=== PATIENT | female | born 1950 | race Caucasian/White ===

== ENCOUNTER 2018-08-11 15:19 | Outpatient (REF) | payer MEDICARE, BC, SELFPAY ==
[2018-08-11 22:17] LABS: Abs Immature Grans 0.02 k/cumm (0.0-0.09); Absolute Basophil Count 0.01 k/cumm (0.0-0.2); Absolute Eosinophil Count 0.01 k/cumm (0.0-0.7); Absolute Lymphocyte Count 1.58 k/cumm (1.2-3.4); Absolute Monocyte Count 0.47 k/cumm (0.11-0.7); Basophils % 0.2; Eosinophils % 0.2; HCT 43.7 % (36.0-46.0); Immature Grans % 0.3; Lymphocytes % 24.3; Mean Corp. HGB Concentration 34.3 g/dL (32.0-36.0); Mean Corpuscular Hemoglobin 29.4 pg (27.0-33.0); Mean Corpuscular Volume 85.5 fL (80-95); Mean Platelet Volume 11.2 fL (8.0-11.0); Monocytes % 7.2; Neutrophils % 67.8; Platelet Count 234 x1000/uL (130-400); RBC 5.11 m/cumm (4.00-5.20); RBC Distribution Width 13.5 % (11.7-14.6); White Blood Cell Count 6.49 k/cumm (4.4-10.8)
[2018-08-11 22:35] LABS: TSH 0.57 uIU/mL (0.358-3.74)
== END 2018-08-11 15:39 ==
LOC: NCHCN 15:19
PROVIDERS: PCP Internal Medicine; Visit Provider Internal Medicine
DX: E11.9 Type 2 diabetes mellitus without complications (principal); E03.9 Hypothyroidism, unspecified
CPT/HCPCS: 84443; 85025

== ENCOUNTER 2019-04-04 22:13 | Outpatient (REF) | payer MEDICARE, BC, SELFPAY ==
[2019-04-04 22:40] LABS: Anion Gap 9.3 mmol/L (3-11); BUN 18 mg/dL (7-18); CO2 25.7 mmol/L (21.0-32.0); CREATININE 0.75 mg/dL (0.55-1.02); Calcium 9.1 mg/dL (8.5-10.1); Chloride 106 mmol/L (98-107); Glucose 156 mg/dL (70-100); Potassium 4.4 mmol/L (3.5-5.1); Sodium 141 mmol/L (136-145)
[2019-04-04 22:45] LABS: Hemoglobin A1C 6.7 % (4.5-6.2)
[2019-04-04 23:33] LABS: COMMENT (LAB VIEW ONLY) 60.87 mg/dL; Microalb ug/mg Crea 7.4 ug/mg Cr
== END 2019-04-04 22:33 ==
LOC: NCHCN 22:13
PROVIDERS: PCP Internal Medicine; Visit Provider Internal Medicine
DX: I10 Essential (primary) hypertension (principal); E11.9 Type 2 diabetes mellitus without complications
CPT/HCPCS: 80048; 82043; 82570; 83036

== ENCOUNTER 2020-04-24 14:37 | Outpatient (REF) | payer MEDICARE, BC, SELFPAY ==
[2020-04-24 22:15] LABS: ALT 31 U/L (14-59); AST 21 U/L (15-37); Albumin 4.2 g/dL (3.4-5.0); Alkaline Phosphatase 57 U/L (46-116); Anion Gap 10.7 mmol/L (3-11); BUN 21 mg/dL (7-18); Bilirubin, Total 0.6 mg/dL (0.2-1.0); CO2 25.3 mmol/L (21.0-32.0); CREATININE 0.94 mg/dL (0.55-1.02); Calcium 9.2 mg/dL (8.5-10.1); Chloride 105 mmol/L (98-107); Glucose 125 mg/dL (74-106); Potassium 4.4 mmol/L (3.5-5.1); Sodium 141 mmol/L (136-145); TSH 0.48 uIU/mL (0.36-3.74); Total Protein 7.4 g/dL (6.4-8.2)
== END 2020-04-24 14:57 ==
LOC: NCHCN 14:37
PROVIDERS: PCP Internal Medicine; Visit Provider Internal Medicine
DX: E03.9 Hypothyroidism, unspecified (principal); I10 Essential (primary) hypertension; H91.93 Unspecified hearing loss, bilateral
CPT/HCPCS: 80053; 84443

== ENCOUNTER 2020-10-13 18:26 | Outpatient (REF) | payer MEDICARE, BC, SELFPAY ==
[2020-10-15 16:33] LABS: COVID-19 RT-PCR UVMMC Result Negative (Negative)
== END 2020-10-13 18:46 ==
LOC: NCHCN 18:26
PROVIDERS: PCP Internal Medicine; Visit Provider Nurse Practitioner Family
DX: R51.9 Headache, unspecified (principal)
CPT/HCPCS: U0003

== ENCOUNTER 2021-01-21 16:22 | Outpatient (REF) | payer MEDICARE, BC, SELFPAY ==
[2021-01-21 22:10] LABS: COMMENT (LAB VIEW ONLY) 38.47 mg/dL
== END 2021-01-21 16:23 | disposition home or self-care (01) ==
LOC: NCHCN 16:22
PROVIDERS: PCP Internal Medicine; Visit Provider Internal Medicine
DX: E11.9 Type 2 diabetes mellitus without complications (principal)
CPT/HCPCS: 82043; 82570

== ENCOUNTER 2021-07-23 11:45 | Outpatient (REF) | payer MEDICARE, BC, SELFPAY ==
[2021-07-23 15:17] LABS: Anion Gap 11.6 mmol/L (3-11); BUN 18 mg/dL (7-18); CO2 25.4 mmol/L (21.0-32.0); CREATININE 0.8 mg/dL (0.55-1.02); Calcium 9.2 mg/dL (8.5-10.1); Calculated LDL 61 mg/dL (<100); Chloride 107 mmol/L (98-107); Cholesterol 133 mg/dL (<200); Glucose 117 mg/dL (74-106); HDL Cholesterol 55 mg/dL (40-60); Potassium 4.2 mmol/L (3.5-5.1); Sodium 144 mmol/L (136-145); Triglyceride 88 mg/dL (<150)
[2021-07-23 15:36] LABS: Hemoglobin A1C 6.3 % (<5.7)
== END 2021-07-23 11:46 | disposition home or self-care (01) ==
LOC: NCHCN 11:45
PROVIDERS: PCP Internal Medicine; Visit Provider Internal Medicine
DX: E11.9 Type 2 diabetes mellitus without complications (principal); E78.5 Hyperlipidemia, unspecified
CPT/HCPCS: 80048; 80061; 83036

== ENCOUNTER 2021-11-30 21:38 | Outpatient (REF) | payer MEDICARE, BC, SELFPAY ==
[2021-11-30 21:39] LABS: TSH 0.06 uIU/mL (0.36-3.74)
== END 2021-11-30 21:39 | disposition home or self-care (01) ==
LOC: NCHCN 21:38
PROVIDERS: PCP Internal Medicine; Visit Provider Internal Medicine
DX: E03.9 Hypothyroidism, unspecified (principal)
CPT/HCPCS: 84443

== ENCOUNTER 2022-03-31 14:43 | Outpatient (REF) | payer MEDICARE, BC, SELFPAY ==
[2022-03-31 22:14] LABS: Hemoglobin A1C 6.2 % (<5.7)
[2022-03-31 22:25] LABS: TSH (W/Ref FT4) 0.22 uIU/mL (0.36-3.74)
[2022-03-31 22:49] LABS: FREE T4 1.33 ng/dL (0.76-1.46)
[2022-03-31 22:53] LABS: COMMENT (LAB VIEW ONLY) 60.67 mg/dL; Microalb ug/mg Crea 16.5 ug/mg Cr
== END 2022-03-31 14:44 | disposition home or self-care (01) ==
LOC: NCHCN 14:43
PROVIDERS: PCP Internal Medicine; Visit Provider Registered Nurse
DX: E11.9 Type 2 diabetes mellitus without complications (principal); E03.9 Hypothyroidism, unspecified
CPT/HCPCS: 82043; 82570; 83036; 84439; 84443

== ENCOUNTER 2022-07-01 13:46 | Outpatient (REF) | payer MEDICARE, BC, SELFPAY ==
[2022-07-01 21:00] LABS: Anion Gap 11.3 mmol/L (3-11); BUN 22 mg/dL (7-18); CO2 25.7 mmol/L (21.0-32.0); Calcium 9.9 mg/dL (8.5-10.1); Chloride 104 mmol/L (98-107); Estimated GFR 59.49 (mL/min/1.73m2); Glucose 118 mg/dL (74-106); Potassium 4.1 mmol/L (3.5-5.1); Sodium 141 mmol/L (136-145)
== END 2022-07-01 13:47 | disposition home or self-care (01) ==
LOC: NCHCN 13:46
PROVIDERS: PCP Internal Medicine; Visit Provider Registered Nurse
DX: U07.1 COVID-19 (principal)
CPT/HCPCS: 80048

== ENCOUNTER 2022-08-10 14:49 | Outpatient (REF) | payer MEDICARE, BC, SELFPAY ==
[2022-08-10 15:13] LABS: Hemoglobin A1C 6.4 % (<5.7)
[2022-08-10 15:27] LABS: TSH 0.75 uIU/mL (0.36-3.74)
== END 2022-08-10 14:50 | disposition home or self-care (01) ==
LOC: NCHCN 14:49
PROVIDERS: PCP Internal Medicine; Visit Provider Internal Medicine
DX: E11.9 Type 2 diabetes mellitus without complications (principal); E03.9 Hypothyroidism, unspecified
CPT/HCPCS: 83036; 84443

== ENCOUNTER 2023-02-14 16:27 | Outpatient (REF) | payer MEDICARE, BC, SELFPAY ==
[2023-02-14 21:43] LABS: COMMENT (LAB VIEW ONLY) 98.12 mg/dL; Microalb ug/mg Crea 27.3 ug/mg Cr
== END 2023-02-14 16:28 | disposition home or self-care (01) ==
LOC: NCHCN 16:27
PROVIDERS: PCP Internal Medicine; Visit Provider Internal Medicine
DX: E11.9 Type 2 diabetes mellitus without complications (principal)
CPT/HCPCS: 82043; 82570

== ENCOUNTER 2023-08-08 14:48 | Outpatient (REF) | payer MEDICARE, BC, SELFPAY ==
[2023-08-08 22:08] LABS: HCT 43.8 % (36.0-46.0); HGB 14.9 g/dL (11.2-15.7); MCH 29.7 pg (27.0-33.0); MCV 87 fL (80-95); MPV 10.5 fL (8.0-11.0); Platelet Count 191 10^3/uL (130-400); RBC 5.02 10^6/uL (3.93-5.22); RDW 13.6 % (11.7-14.6); RDW-SD 43.5 fL; WBC 4.48 10^3/uL (4.4-10.8)
[2023-08-08 22:09] LABS: Anion Gap 7.7 mmol/L (3-11); BUN 27 mg/dL (7-18); CO2 29.3 mmol/L (21.0-32.0); Calcium 9.9 mg/dL (8.5-10.1); Chloride 102 mmol/L (98-107); Estimated GFR 58.75 (mL/min/1.73m2); Glucose 152 mg/dL (74-106); Potassium 3.8 mmol/L (3.5-5.1); Sodium 139 mmol/L (136-145); TSH 0.82 uIU/mL (0.36-3.74)
[2023-08-08 22:27] LABS: Hemoglobin A1C 6.2 % (<5.7)
== END 2023-08-08 14:49 | disposition home or self-care (01) ==
LOC: NCHCN 14:48
PROVIDERS: PCP Internal Medicine; Visit Provider Internal Medicine
DX: M81.0 Age-related osteoporosis without current pathological fracture (principal); I10 Essential (primary) hypertension; E11.9 Type 2 diabetes mellitus without complications; E03.9 Hypothyroidism, unspecified
CPT/HCPCS: 80048; 82306; 85027; 83036; 84443

== ENCOUNTER 2024-02-13 18:04 | Outpatient (REF) | payer MEDICARE, BC, SELFPAY ==
[2024-02-13 22:18] LABS: Microalb ug/mg Crea 9.6 ug/mg Cr
== END 2024-02-13 18:05 | disposition home or self-care (01) ==
LOC: NCHCN 18:04
PROVIDERS: PCP Internal Medicine; Visit Provider Internal Medicine
DX: E11.9 Type 2 diabetes mellitus without complications (principal)
CPT/HCPCS: 82043; 82570

== ENCOUNTER 2024-03-23 15:28 | Outpatient (REF) | payer MEDICARE, BC, SELFPAY ==
[2024-03-23 15:12] LABS: Bilirubin Negative (Negative); Blood Negative (Negative); Clarity Clear (Clear); Glucose 500 mg/dL (Negative); Ketones Negative (Negative); Leukocyte Esterase Negative (Negative); Nitrite Negative (Negative); Urobilinogen 0.2 mg/dL (Up to 0.2)
--- OUTSIDE RECORDS SUMMARY | 2024-03-23 15:31 | XMS_ITS ---
Author Name Unknown Address [address] [place] [address] [phone] Phone Organization Unknown Address [address] [place] [address] [phone] Phone Care Team Providers Care American Indian Studies Professor Name Role Phone GARY DUMONT Registered Nurse Unavailable STEFANIA Rodrigues Attending Unavailable JAMES Mix Primary Unavailable UNLISTED PROVIDER - REQUESTED Xhandoff Un available Immunization Immunization Date Status Additional Notes Code Code System Td (adult), 5 Lf tetanus toxoid, preservative free, adsorbed 04/09/2023 Completed [address] HEAD WO CONTRAST - Comple evelia: 04/10/2023 01:53 LOINC: [facility] [place], [place] [address] PACS ANIMAL SKINNER REPORT Patient Name: PAYAL ARNETT MRN: Sex: : Age: [id number] F 1950 72 Account: Accession: Admit: StayType: [id number] 04/09/2023 E/R Ordered: Order ID: Submitted: Ordering Provider: 04/09/2023 22:07 [id number] JEFFY ROA Completed: Technologist: Resulted: 04/10/2023 01:53 MXM 04/10/2023 13:42 Study Description: CT HEAD WO CONTRAST Study Reason: External Injury/Trauma COMPARISON: None FINDINGS: Ventricles and Extra axial spaces: Normal in size and morphology for the patient's age. Hemorrhage: None. Cerebral parenchyma: No mass or infarct. Minimal atrophy. No significant white matter changes. Midline shift: None. Brainstem/Cerebellum: Normal. Calvarium: Hyperostosis frontalis interna. Visualized Paranasal sinuses/Mastoids: Clear. Soft Tissues: Unremarkable. IMPRESSION: No acute intracranial process. Report Digitally Signed by Radhika Allen on 04/10/2023 01:42 PM EDT XR WRIST 3V W NAVICULAR RT* - Completed: 04/10/2023 01:53 LOINC: [facility] [place], [place] [address] PACS ANIMAL SKINNER REPORT Patient Name: PAYAL ARNETT MRN: Sex: : Age: [id number] F 1950 72 Account: Accession: Admit: StayType: [id number] 04/09/2023 E/R Ordered: Order ID: Submitted: Ordering Provider: 04/09/2023 21:37 [id number] JEFFY ROBERTO Completed: Technologist: Resulted: 04/10/2023 01:53 MXM 04/10/2023 13:43 Study Description: XR WRIST 3V W NAVICULAR RT Study Reason: Pain 4 Images were obtained. COMPARISON: None FINDINGS: Bones: Nondisplaced fracture the base of the fifth metacarpal. No additional fractures. No destructive bony lesion. Joints:No subluxation or dislocation. degenerative changes. Soft tissues: Unremarkable. No foreign body. IMPRESSION: Nondisplaced fracture at the base of the fifth metacarpal.. Report Digitally Signed by Radhika Allen on 04/10/2023 01:43 PM EDT Social History Type Status Start Date End Date Code Code Syst em Smoking History Never smoker (Never Smoked) 058765165 SNOMED CT Sex Female Vital Signs Vital Sign Value Unit [place] Date/Time Recent/Initial? Code Code System Body Mass Index 33.73 kg/m2 04/09/2023 21:37 Initial 36184 -5 LOINC Systolic Blood Pressure 139 mm[Hg] 04/10/2023 01:22 Most Recent 8480- 6 LOINC Diastolic Blood Pressure 71 mm[Hg] 04/10/2023 01:22 Most Recent 8462- 4 LOINC Systolic Blood Pressure 144 mm[Hg] 04/09/2023 21:37 Initial 8480- 6 LOINC Diastolic Blood Pressure 68 mm[Hg] 04/09/2023 21:37 Initial 8462- 4 LOINC Body Surface Area 1.78 m2 04/09/2023 21:37 Initial 3140- 1 LOINC Height 149.860 0 cm 59.00 in 04/09/2023 21:37 Initial 8302- 2 LOINC O2 Saturation 92 % 2022 01:22 Most Recent 60601 -5 LOINC O2 Saturation 99 % 2022 21:37 Initial 05522 -5 LOINC Pulse 83.0 /min 04/10/2023 01:22 Most Recent 8867- 4 LOINC Pulse 82.0 /min 04/09/2023 21:37 Initial 8867- 4 LOINC Respiration 18 /min 04/10/20 01:22 Most Recent 9279- 1 LOINC Respiration 20 /min 04/09/20 21:37 Initial 9279- 1 LOINC Temperature 36.5 Adrienne 97.7 F 04/09/20 21:37 Initial 8310- 5 LOINC Weight 75.75 kg 167.00 lbs 04/09/2023 21:37 Initial 61345 -7 LOINC Medications Medication Start Date End Date Route Frequency Dose Code Code System Medication Instructions Home Meds Keflex 500MG Oral Capsule 04/10/2023 07/03/2023 ORAL THREE TIMES A DAY 1 CAPSULE 633854 RxNorm TAKE 1 CAPSULE ORAL THREE TIMES A DAY oxyCODONE HCl 5MG Oral Capsule 07/03/2023 Unknown ORAL NEEDED FOUR TIMES A DAY 1 CAPSULE 9967310 RxNorm TAKE 1 CAPSULE ORAL NEEDED FOUR TIMES A DAY Assessment You had the following problems:FALLLACERATION OF LIPCLOSED FRACTURE OF FIFTH METACARPAL BONE OF RIGHT HAND Hospital Discharge Instructions Should you have any questions prior to discharge, please contact a member of your healthcare team. If you have left the hospital and have any questions, please contact your primary care physician. Reason For Referral No Data Found Problems Problem Start Date Resolved Date Status Code Code System FALL active 9210139 SNOMED-CT LACERATION OF LIP active 405162247 SN OMED-CT CLOSED FRACTURE OF FIFTH METACARPAL BONE OF RIGHT HAND active 72158822577314132 SNOMED-CT BREAST CANCER 07/03/2023 resolved 329709738 SNOME D-CT DIABETES 2 07/03/2023 resolved 98486756 SNOMED-C T HYPERTENSION 07/03/2023 resolved 52380515 SNOMED -CT Allergies and Adverse Reactions Allergy Substance Reaction Severity Start Date Concern Status Co de Code System No Known Allergies Moderate Active Plan of Treatment Pre-Op Covid-19 Testing 02/03/2021 X-RAY 12/16/2022 BONE DENSITY DEXA SPINE & HIP OUTPATIENT PLAN: Additional Physician Instructions: Clear liquids for 1-2 days. Swish and spit with water after eating/drinking. Keep splint clean and dry. Keep arm elevated above heart as much as possible. Your prescription was electronically sent to [facility] in [place]. Discharge Medications Medication Dosage Route Frequency Prescribing MD Special Instructions Keflex 500MG Oral Capsule 1 CAPSULE ORAL THREE TIMES A DAY STEFANIA JEFFY Lilia TAKE 1 CAPSULE ORAL THREE TIMES A DAY HOSPITAL COURSE AND TESTING: Medications given this visit: Ordered & Completed Meds Table Ordered Medication Start Date/Time Dosage Route Frequency Status TETANUS/DIPTHERIA TOX SDV ADULT 0.5ML 04/09/2023 22:06 0.5 ML IM OPTIONS X1 completed LIDOCAINE/EPI MPF INJ SDV 2% 20ML 04/09/2023 22:06 1 ML SUBCUTANEOUS OPTIONS X1 completed ER- CEPHALEXIN 4 PACK: 500MG 04/10/2023 00:59 500 MG ORAL Q8H active RADIOLOGY RESULTS: CT HEAD, W/O CONTRAST - interpreted by [facility]. Impression: no acute intracranial abnormality XRAY RIGHT WRIST AND HAND - Reveals ACUTE FRACTURE OF PROXIMAL 5th METACARPAL. NO soft tissue abnormalities. NO foreign body visualized. This is an abnormal Xray interpreted by ER MD. PROCEDURES: Suture repair Encounters Encounter Diagnosis Start Date Code Code Sys tem Laceration without foreign body of lip, initial encoun ter 04/09/2023 SNOMED-CT Personal Care Team Section Performer Name Performer Role Active Date Inactive Da te
--- OUTSIDE RECORDS SUMMARY | 2024-03-23 15:31 | XMS_ITS ---
Author Name Unknown Address [address] [place] [address] [phone] Phone Organization Unknown Address [address] [place] [address] [phone] Phone Care Team Providers Care Director Post Name Role Phone JAMES Mix Attending Unavailable Immunization Immunization Date Status Additional Notes Code Code System Td (adult), 5 Lf tetanus toxoid, preservative free, adsorbed 04/09/2023 Completed 113 CVX Results XR KNEE 3V RT* - Completed: 12/16/2022 13:42 [facility] [place], [place] [address] PACS CSM CONSULTANT REPORT Patient Name: PAYAL ARNETT MRN: Sex: : Age: [id number] F 1950 72 Account: Accession: Admit: StayType: [id number] 12/16/2022 O/P Ordered: Order ID: Submitted: Ordering Provider: 12/16/2022 13:14 [id number] KT VIJAY RAMIREZ Completed: Technologist: Resulted: 12/16/2022 13:42 SLG 12/16/2022 13:47 Study Description: XR KNEE 3V RT Study Reason: RT KNEE PAIN Technique: 2D digital imaging was performed. 3 images were obtained. COMPARISON: None. FINDINGS: Bones: No acute fractures present. No bony destructive lesion is seen. Joints: No dislocation is present. There are postsurgical changes of a right total knee replacement. The orthopedic hardware appears in good position. No lucencies are seen in or about the orthopedic hardware. Soft tissues: Unremarkable. IMPRESSION: Right total knee arthroplasty. Report Digitally Signed by Avtar Dias on 12/16/2022 01:47 PM EDT Social History Type Status Start Date End Date Code Code Syst em Smoking History Never smoker (Never Smoked) 819761455 SNOMED CT Sex Female Medications Medication Start Date End Date Route Frequency Dose Code Code System Medication Instructions Home Meds Keflex 500MG Oral Capsule 04/10/2023 07/03/2023 ORAL THREE TIMES A DAY 1 CAPSULE 528785 RxNorm TAKE 1 CAPSULE ORAL THREE TIMES A DAY oxyCODONE HCl 5MG Oral Capsule 07/03/2023 Unknown ORAL NEEDED FOUR TIMES A DAY 1 CAPSULE 1517044 RxNorm TAKE 1 CAPSULE ORAL NEEDED FOUR [...] Date Status Code Code System FALL active SNOMED-CT LACERATION OF LIP active 577473619 SN OMED-CT CLOSED FRACTURE OF FIFTH METACARPAL BONE OF RIGHT HAND active 29965986316712403 SNOMED-CT BREAST CANCER 07/03/2023 resolved 053198860 SNOME D-CT DIABETES 2 07/03/2023 resolved 70684451 SNOMED-C T HYPERTENSION 07/03/2023 resolved 76483108 SNOMED -CT Allergies and Adverse Reactions Allergy Substance Reaction Severity Start Date Concern Status Co de Code System No Known Allergies Moderate Active Plan of Treatment Pre-Op Covid-19 Testing 02/03/2021 X-RAY 12/16/2022 BONE DENSITY DEXA SPINE & HIP 3 Encounters Encounter Diagnosis Start Date Code Code Sys tem Pain in right knee 12/16/2022 SNOMED-CT Personal Care Team Section Performer Name Performer Role Active Date Inactive Da te
--- OUTSIDE RECORDS SUMMARY | 2024-03-23 15:31 | XMS_ITS ---
Author Name Unknown Address [address] [place] [address] [phone] Phone Organization Unknown Address [address] [place] [address] [phone] Phone Care Team Providers Care Bin Worker Name Role Phone HASEEB Harrell Attending Unavailable JAMES Mix Primary Unavailable Immunization Immunization Date Status Additional Notes Code Code System Td (adult), 5 Lf tetanus toxoid, preservative free, adsorbed 04/09/2023 Completed 113 CVX Results XR WRIST 3V RT* - Completed: 04/11/2023 14:29 [facility]: [place], [place] [address] PACS AUDIO VIDEO REPAIRER REPORT Patient Name: PAYAL ARNETT MRN: Sex: : Age: [id number] F 1950 72 Account: Accession: Admit: StayType: [id number] 04/11/2023 CLINIC Ordered: Order ID: Submitted: Ordering Provider: 04/11/2023 14:24 [id number] MAT LINTON Completed: Technologist: Resulted: 04/11/2023 14:29 BRIAN 04/11/2023 14:29 Study Description: XR WRIST 3V RT Study Reason: rt wrist pain Technique: 2D digital imaging was performed. 3 images were obtained. COMPARISON: 04/09/2023 FINDINGS: Unchanged alignment of fifth metatarsal base fracture. No new fractures. Advanced degenerative changes of the hand and wrist. IMPRESSION: No significant interval change. Report Digitally Signed by Mat Foster on 04/11/2023 02:29 PM EDT Social History Type Status Start Date End Date Code Code Syst em Smoking History Never smoker (Never Smoked) 522875659 SNOMED CT Sex Female Medications Medication Start Date End Date Route Frequency Dose Code Code System Medication Instructions Home Meds Keflex 500MG Oral Capsule 04/10/2023 07/03/2023 ORAL THREE TIMES A DAY 1 CAPSULE 044550 RxNorm TAKE 1 CAPSULE ORAL THREE TIMES A DAY oxyCODONE HCl 5MG Oral Capsule 07/03/2023 Unknown ORAL NEEDED FOUR TIMES A DAY 1 CAPSULE 3896687 RxNorm TAKE 1 CAPSULE ORAL NEEDED FOUR [...] FALL active SNOMED-CT LACERATION OF LIP active 673848660 SN OMED-CT CLOSED FRACTURE OF FIFTH METACARPAL BONE OF RIGHT HAND active 46736985230124936 SNOMED-CT BREAST CANCER 07/03/2023 resolved 500008068 SNOME D-CT DIABETES 2 07/03/2023 resolved 05086555 SNOMED-C T HYPERTENSION 07/03/2023 resolved 64745651 SNOMED -CT Allergies and Adverse Reactions Allergy Substance Reaction Severity Start Date Concern Status Co de Code System No Known Allergies Moderate Active Plan of Treatment Pre-Op Covid-19 Testing 02/03/2021 X-RAY 12/16/2022 BONE DENSITY DEXA SPINE & HIP 3 Encounters Encounter Diagnosis Start Date Code Code Sys tem 04/11/2023 [id number] SNOMED-CT Personal Care Team Section Performer Name Performer Role Active Date Inactive Da te
--- OUTSIDE RECORDS SUMMARY | 2024-03-23 15:32 | XMS_ITS ---
Author Name Unknown Address [address] [place] [address] [phone] Phone Organization Unknown Address [address] [place] [address] [phone] Phone Care Team Providers Care Laborer Orchard Name Role Phone KATHRYN Albrecht Attending Unavailable JAMES Mix Primary Unavailable Immunization Immunization Date Status Additional Notes Code Code System Td (adult), 5 Lf tetanus toxoid, preservative free, adsorbed 04/09/2023 Completed 113 CVX Results XR HAND 3V RT* - Completed: 04/27/2023 14:48 [facility]: [place], [place] [address] PACS DIPPER OPERATOR REPORT Patient Name: PAYAL ARNETT MRN: Sex: : Age: [id number] F 1950 72 Account: Accession: Admit: StayType: [id number] 04/27/2023 CLINIC Ordered: Order ID: Submitted: Ordering Provider: 04/27/2023 14:44 [id number] RYLEY WILLARD Completed: Technologist: Resulted: 04/27/2023 14:48 BRIAN 04/27/2023 15:59 Study Description: XR HAND 3V RT Study Reason: rt hand pain TECHNIQUE: 2D digital imaging was performed. COMPARISON: 04/11/2023 FINDINGS: NUMBER OF VIEWS: 3 There is stable appearance of the fifth metatarsal base fracture. Unchanged alignment. No distal fractures evident. Again noted are advanced degenerative changes at the interphalangeal joints, most prominent in the DIP joints. IMPRESSION: No significant interval change. Report Digitally Signed by Isra Jefferson on 04/27/2023 03:59 PM EDT Social History Type Status Start Date End Date Code Code Syst em Smoking History Never smoker (Never Smoked) 755146849 SNOMED CT Sex Female Medications Medication Start Date End Date Route Frequency Dose Code Code System Medication Instructions Home Meds Keflex 500MG Oral Capsule 04/10/2023 07/03/2023 ORAL THREE TIMES A DAY 1 CAPSULE 720086 RxNorm TAKE 1 CAPSULE ORAL THREE TIMES A DAY oxyCODONE HCl 5MG Oral Capsule 07/03/2023 Unknown ORAL NEEDED FOUR TIMES A DAY 1 CAPSULE 9808005 RxNorm TAKE 1 CAPSULE ORAL NEEDED FOUR [...] FALL active SNOMED-CT LACERATION OF LIP active 032135630 SN OMED-CT CLOSED FRACTURE OF FIFTH METACARPAL BONE OF RIGHT HAND active 80243015254457551 SNOMED-CT BREAST CANCER 07/03/2023 resolved 585387027 SNOME D-CT DIABETES 2 07/03/2023 resolved 95682817 SNOMED-C T HYPERTENSION 07/03/2023 resolved 31627478 SNOMED -CT Allergies and Adverse Reactions Allergy Substance Reaction Severity Start Date Concern Status Co de Code System No Known Allergies Moderate Active Plan of Treatment Pre-Op Covid-19 Testing 02/03/2021 X-RAY 12/16/2022 BONE DENSITY DEXA SPINE & HIP 3 Encounters Encounter Diagnosis Start Date Code Code Sys tem Fracture of base of fifth metacarpal 04/27/2023 2632 08915 SNOMED-CT Personal Care Team Section Performer Name Performer Role Active Date Inactive Da te
--- OUTSIDE RECORDS SUMMARY | 2024-03-23 15:32 | XMS_ITS ---
Author Name Unknown Address [address] [place] [address] [phone] Phone Organization Unknown Address [address] [place] [address] [phone] Phone Care Team Providers Care Optical Instrument Assembly Supervisor Name Role Phone KATHRYN Albrecht Attending Unavailable JAMES Mix Primary Unavailable Immunization Immunization Date Status Additional Notes Code Code System Td (adult), 5 Lf tetanus toxoid, preservative free, adsorbed 04/09/2023 Completed 113 CVX Social History Type Status Start Date End Date Code Code Syst em Smoking History Never smoker (Never Smoked) 842588255 SNOMED CT Sex Female Medications Medication Start Date End Date Route Frequency Dose Code Code System Medication Instructions Home Meds Keflex 500MG Oral Capsule 04/10/2023 07/03/2023 ORAL THREE TIMES A DAY 1 CAPSULE 651510 RxNorm TAKE 1 CAPSULE ORAL THREE TIMES A DAY oxyCODONE HCl 5MG Oral Capsule 07/03/2023 Unknown ORAL NEEDED FOUR TIMES A DAY 1 CAPSULE 8577365 RxNorm TAKE 1 CAPSULE ORAL NEEDED FOUR [...] FALL active SNOMED-CT LACERATION OF LIP active 577783099 SN OMED-CT CLOSED FRACTURE OF FIFTH METACARPAL BONE OF RIGHT HAND active 49732919837423393 SNOMED-CT BREAST CANCER 07/03/2023 resolved 925739176 SNOME D-CT DIABETES 2 07/03/2023 resolved 41492143 SNOMED-C T HYPERTENSION 07/03/2023 resolved 89856185 SNOMED -CT Allergies and Adverse Reactions Allergy Substance Reaction Severity Start Date Concern Status Co de Code System No Known Allergies Moderate Active Plan of Treatment Pre-Op Covid-19 Testing 02/03/2021 X-RAY 12/16/2022 BONE DENSITY DEXA SPINE & HIP 3 Encounters Encounter Diagnosis Start Date Code Code Sys tem Idiopathic osteoarthritis 06/15/2023 443392241 SN OMED-CT Personal Care Team Section Performer Name Performer Role Active Date Inactive Da te
--- OUTSIDE RECORDS SUMMARY | 2024-03-23 15:32 | XMS_ITS ---
Author Name Unknown Address [address] [place] [address] [phone] Phone Organization Unknown Address [address] [place] [address] [phone] Phone Care Team Providers Care Librarian Specialist Name Role Phone MATY RAMOS Registered Nurse Unavailable GABO Monzon Attending Unavailable JAMES Mix Primary Unavailable UNLISTED PROVIDER - REQUESTED Xhandoff Un available Immunization Immunization Date Status Additional Notes Code Code System Td (adult), 5 Lf tetanus toxoid, preservative free, adsorbed 04/09/2023 Completed 113 CVX Social History Type Status Start Date End Date Code Code Syst em Smoking History Never smoker (Never Smoked) 874293231 SNOMED CT Sex Female Vital Signs Vital Sign Value Unit [place] Value [place] Unit Date/Time Recent/Initial? Code Code System Body Mass Index 33.33 kg/m2 07/03/2023 08:48 Initial 43543 -5 LOINC Systolic Blood Pressure 147 mm[Hg] 07/03/2023 08:58 Initial 8480- 6 LOINC Diastolic Blood Pressure 73 mm[Hg] 07/03/2023 08:58 Initial 8462- 4 LOINC Body Surface Area 1.77 m2 07/03/2023 08:48 Initial 3140- 1 LOINC Height 149.860 0 cm 59.00 in 07/03/2023 08:48 Initial 8302- 2 LOINC O2 Saturation 98 % 2022 08:58 Initial 06076 -5 LOINC Pulse 66.0 /min 07/03/2023 08:58 Initial 8867- 4 LOINC Respiration 16 /min 07/03/20 08:58 Initial 9279- 1 LOINC Temperature 36.6 Adrienne 97.9 F 07/03/20 08:58 Initial 8310- 5 LOINC Weight 74.84 kg 165.00 lbs 07/03/2023 08:48 Initial 16012 -7 LOINC Medications Medication Start Date End Date Route Frequency Dose Code Code System Medication Instructions Home Meds Keflex 500MG Oral Capsule 04/10/2023 07/03/2023 ORAL THREE TIMES A DAY 1 CAPSULE 814549 RxNorm TAKE 1 CAPSULE ORAL THREE TIMES A DAY oxyCODONE HCl 5MG Oral Capsule 07/03/2023 Unknown ORAL NEEDED FOUR TIMES A DAY 1 CAPSULE 9663816 RxNorm TAKE 1 CAPSULE ORAL NEEDED FOUR [...] physician. Reason For Referral No Data Found Procedures Procedure Name Date Status Code Code Syste m Breast lumpectomy completed 647055873 SNOMEDC T Cholecystectomy completed 82305654 SNOMEDCT Knee replacement completed 49118747 SNOMEDCT Problems Problem Start Date Resolved Date Status Code Code System FALL active SNOMED-CT LACERATION OF LIP active 367675859 SN OMED-CT CLOSED FRACTURE OF FIFTH METACARPAL BONE OF RIGHT HAND active 33446883601676338 SNOMED-CT BREAST CANCER 07/03/2023 resolved 015122411 SNOME D-CT DIABETES 2 07/03/2023 resolved 90485810 SNOMED-C T HYPERTENSION 07/03/2023 resolved 95944917 SNOMED -CT Allergies and Adverse Reactions Allergy Substance Reaction Severity Start Date Concern Status Co de Code System No Known Allergies Moderate Active Plan of Treatment Pre-Op Covid-19 Testing 02/03/2021 X-RAY 12/16/2022 BONE DENSITY DEXA SPINE & HIP 3 Encounters Encounter Diagnosis Start Date Code Code Sys tem Cervical radiculopathy 07/03/2023 05191649 SNOME D-CT Personal Care Team Section Performer Name Performer Role Active Date Inactive Dion fish
--- OUTSIDE RECORDS SUMMARY | 2024-03-23 15:33 | XMS_ITS ---
Author Name Unknown Address [address] [place] [address] [phone] Phone Organization Unknown Address [address] [place] [address] [phone] Phone Care Team Providers Care Hazardous Materials Analyst Name Role Phone GABO ARANDA MD Attending Unavailable JAMES LINARES Primary Unavailable Social History Type Status Start Date End Date Code Code Syst em Smoking History Never smoker (Never Smoked) 220949309 SNOMED CT Sex Female Medications Medication Start Date End Date Route Frequency Dose Code Code System Medication Instructions Home Meds Keflex 500MG Oral Capsule 04/10/2023 07/03/2023 ORAL THREE TIMES A DAY 1 CAPSULE 362128 RxNorm TAKE 1 CAPSULE ORAL THREE TIMES A DAY oxyCODONE HCl 5MG Oral Capsule 07/03/2023 Unknown ORAL NEEDED FOUR TIMES A DAY 1 CAPSULE 7811296 RxNorm TAKE 1 CAPSULE ORAL NEEDED FOUR [...] FALL active SNOMED-CT LACERATION OF LIP active 196946125 SN OMED-CT CLOSED FRACTURE OF FIFTH METACARPAL BONE OF RIGHT HAND active 95947964286209515 SNOMED-CT BREAST CANCER 07/03/2023 resolved 440680252 SNOME D-CT DIABETES 2 07/03/2023 resolved 96037176 SNOMED-C T HYPERTENSION 07/03/2023 resolved 95554766 SNOMED -CT Allergies and Adverse Reactions Allergy Substance Reaction Severity Start Date Concern Status Co de Code System No Known Allergies Moderate Active Plan of Treatment Pre-Op Covid-19 Testing 02/03/2021 X-RAY 12/16/2022 BONE DENSITY DEXA SPINE & HIP 3 Encounters Encounter Diagnosis Start Date Code Code Sys tem Laceration without foreign b redd of right index finger without damage to nail, initial encounter 05/27/2021 SNOMED-CT Personal Care Team Section Performer Name Performer Role Active Date Inactive Da te
--- OUTSIDE RECORDS SUMMARY | 2024-03-23 15:33 | XMS_ITS ---
Author Name Unknown Address [address] [place] [address] [phone] Phone Organization Unknown Address [address] [place] [address] [phone] Phone Care Team Providers Care Gastroenterologist Name Role Phone JASIEL NAVA Attending Unavailable JAMES Mix Primary Unavailable Immunization Immunization Date Status Additional Notes Code Code System Td (adult), 5 Lf tetanus toxoid, preservative free, adsorbed 04/09/2023 Completed 113 CVX Social History Type Status Start Date End Date Code Code Syst em Smoking History Never smoker (Never Smoked) 567858027 SNOMED CT Sex Female Medications Medication Start Date End Date Route Frequency Dose Code Code System Medication Instructions Home Meds oxyCODONE HCl 5MG Oral Capsule 07/03/2023 Unknown ORAL NEEDED FOUR TIMES A DAY 1 CAPSULE 0787189 RxNorm TAKE 1 CAPSULE ORAL NEEDED FOUR [...] FALL active SNOMED-CT LACERATION OF LIP active 597859074 SN OMED-CT CLOSED FRACTURE OF FIFTH METACARPAL BONE OF RIGHT HAND active 41804691336300520 SNOMED-CT BREAST CANCER 07/03/2023 resolved 400711744 SNOME D-CT DIABETES 2 07/03/2023 resolved 99163460 SNOMED-C T HYPERTENSION 07/03/2023 resolved 13061542 SNOMED -CT Allergies and Adverse Reactions Allergy Substance Reaction Severity Start Date Concern Status Co de Code System No Known Allergies Moderate Active Plan of Treatment Pre-Op Covid-19 Testing 02/03/2021 X-RAY 12/16/2022 BONE DENSITY DEXA SPINE & HIP 3 Encounters Encounter Diagnosis Start Date Code Code Sys tem Follow-up visit 12/14/2023 112680955 SNOMED-CT Personal Care Team Section Performer Name Performer Role Active Date Inactive Da te
--- OUTSIDE RECORDS SUMMARY | 2024-03-23 15:33 | XMS_ITS ---
Author Name Unknown Address [address] [place] [address] [phone] Phone Organization Unknown Address [address] [place] [address] [phone] Phone Care Team Providers Care Vp Of Technology Name Role Phone KEYONA RUTLEDGE Attending Unavailable JAMES Mix Primary Unavailable Immunization Immunization Date Status Additional Notes Code Code System Td (adult), 5 Lf tetanus toxoid, preservative free, adsorbed 04/09/2023 Completed 113 CVX Social History Type Status Start Date End Date Code Code Syst em Smoking History Never smoker (Never Smoked) 764195680 SNOMED CT Sex Female Medications Medication Start Date End Date Route Frequency Dose Code Code System Medication Instructions Home Meds oxyCODONE HCl 5MG Oral Capsule 07/03/2023 Unknown ORAL NEEDED FOUR TIMES A DAY 1 CAPSULE 1621113 RxNorm TAKE 1 CAPSULE ORAL NEEDED FOUR [...] FALL active SNOMED-CT LACERATION OF LIP active 890126288 SN OMED-CT CLOSED FRACTURE OF FIFTH METACARPAL BONE OF RIGHT HAND active 93826113669405917 SNOMED-CT BREAST CANCER 07/03/2023 resolved 648258967 SNOME D-CT DIABETES 2 07/03/2023 resolved 48523166 SNOMED-C T HYPERTENSION 07/03/2023 resolved 59419279 SNOMED -CT Allergies and Adverse Reactions Allergy Substance Reaction Severity Start Date Concern Status Co de Code System No Known Allergies Moderate Active Plan of Treatment Pre-Op Covid-19 Testing 02/03/2021 X-RAY 12/16/2022 BONE DENSITY DEXA SPINE & HIP 3 Encounters Encounter Diagnosis Start Date Code Code Sys tem Follow-up visit 08/10/2023 [id number] SNOMED-CT Personal Care Team Section Performer Name Performer Role Active Date Inactive Da te
--- OUTSIDE RECORDS SUMMARY | 2024-03-23 15:33 | XMS_ITS ---
Author Name Unknown Address [address] [place] [address] [phone] Phone Organization Unknown Address [address] [place] [address] [phone] Phone Care Team Providers Care Warehouse Supervisor 3Rd Shift Name Role Phone JAMES LINARES Attending Unavailable Results KNEE LEFT MIN 4V - Completed : 06/16/2021 13:52 LOINC: LEFT KNEE, 4 VIEWS: No priors. There are marked degenerative changes of the left knee with joint space narrowing and periarticular spurring involving all 3 joint compartments. No acute fracture or dislocation is identified. The soft tissues are unremarkable. IMPRESSION: Marked osteoarthritis of the left knee. Dictated by: NICHOLE OWENS M.D. RADIOLOGIST Transcribed by: ARIEL 06/16/21/16:31 [id number] Electronically Reviewed and Signed By: JEFFY OWENS M.D. RADIOLOGIST 06/24/21 09:39 Copy for: JAMES LINARES via fax Social History Type Status Start Date End Date Code Code Syst em Smoking History Never smoker (Never Smoked) [id number] SNOMED CT Sex Female Medications Medication Start Date End Date Route Frequency Dose Code Code System Medication Instructions Home Meds Keflex 500MG Oral Capsule 04/10/2023 07/03/2023 ORAL THREE TIMES A DAY 1 CAPSULE 040526 RxNorm TAKE 1 CAPSULE ORAL THREE TIMES A DAY oxyCODONE HCl 5MG Oral Capsule 07/03/2023 Unknown ORAL NEEDED FOUR TIMES A DAY 1 CAPSULE 8841575 RxNorm TAKE 1 CAPSULE ORAL NEEDED FOUR [...] FALL active SNOMED-CT LACERATION OF LIP active 941673678 SN OMED-CT CLOSED FRACTURE OF FIFTH METACARPAL BONE OF RIGHT HAND active 58662760483066183 SNOMED-CT BREAST CANCER 07/03/2023 resolved 539871349 SNOME D-CT DIABETES 2 07/03/2023 resolved 25262032 SNOMED-C T HYPERTENSION 07/03/2023 resolved 89322770 SNOMED -CT Allergies and Adverse Reactions Allergy Substance Reaction Severity Start Date Concern Status Co de Code System No Known Allergies Moderate Active Plan of Treatment Pre-Op Covid-19 Testing 02/03/2021 X-RAY 12/16/2022 BONE DENSITY DEXA SPINE & HIP 3 Encounters Encounter Diagnosis Start Date Code Code Sys tem Unilateral primary osteoarthritis, left knee 1 SNOMED-CT Personal Care Team Section Performer Name Performer Role Active Date Inactive Da te
--- OUTSIDE RECORDS SUMMARY | 2024-03-23 15:34 | XMS_ITS ---
Author Name Unknown Address [address] [place] [address] [phone] Phone Organization Unknown Address [address] [place] [address] [phone] Phone Care Team Providers Care Durable Medical Equipment Repairer Name Role Phone PAULY CARR Attending Unavailable JAMES LINARES Primary Unavailable Social History Type Status Start Date End Date Code Code Syst em Smoking History Never smoker (Never Smoked) [id number] SNOMED CT Sex Female Medications Medication Start Date End Date Route Frequency Dose Code Code System Medication Instructions Home Meds Keflex 500MG Oral Capsule 04/10/2023 07/03/2023 ORAL THREE TIMES A DAY 1 CAPSULE 028402 RxNorm TAKE 1 CAPSULE ORAL THREE TIMES A DAY oxyCODONE HCl 5MG Oral Capsule 07/03/2023 Unknown ORAL NEEDED FOUR TIMES A DAY 1 CAPSULE 4799365 RxNorm TAKE 1 CAPSULE ORAL NEEDED FOUR [...] FALL active SNOMED-CT LACERATION OF LIP active 355892183 SN OMED-CT CLOSED FRACTURE OF FIFTH METACARPAL BONE OF RIGHT HAND active 79833748289765008 SNOMED-CT BREAST CANCER 07/03/2023 resolved 578486112 SNOME D-CT DIABETES 2 07/03/2023 resolved 12630048 SNOMED-C T HYPERTENSION 07/03/2023 resolved 65170465 SNOMED -CT Allergies and Adverse Reactions Allergy Substance Reaction Severity Start Date Concern Status Co de Code System No Known Allergies Moderate Active Plan of Treatment Pre-Op Covid-19 Testing 02/03/2021 X-RAY 12/16/2022 BONE DENSITY DEXA SPINE & HIP 3 Encounters Encounter Diagnosis Start Date Code Code Sys tem Idiopathic osteoarthritis 06/23/2021 [id number] OMED-CT Personal Care Team Section Performer Name Performer Role Active Date Inactive Da te
== END 2024-03-23 15:29 | disposition home or self-care (01) ==
LOC: NCHCN 15:28
PROVIDERS: PCP Internal Medicine; Visit Provider Internal Medicine
DX: R10.9 Unspecified abdominal pain (principal); R82.998 Other abnormal findings in urine
CPT/HCPCS: 81003; 87086

== ENCOUNTER 2024-08-06 18:17 | Outpatient (REF) | payer MEDICARE, BC, SELFPAY ==
[2024-08-06 22:16] LABS: ALT 25 U/L (14-59); AST 26 U/L (15-37); Albumin 4.2 g/dL (3.4-5.0); Alkaline Phosphatase 49 U/L (46-116); Anion Gap 5.2 mmol/L (3-11); BUN 18 mg/dL (7-18); Bilirubin, Total 0.55 mg/dL (0.2-1.0); CO2 30.8 mmol/L (21.0-32.0); CREATININE 0.9 mg/dL (0.55-1.02); Chloride 107 mmol/L (98-107); Estimated GFR 66.26 (mL/min/1.73m2); Glucose 110 mg/dL (74-106); Potassium 4.5 mmol/L (3.5-5.1); Sodium 143 mmol/L (136-145); TSH 1.07 uIU/mL (0.36-3.74); Total Protein 8.2 g/dL (6.4-8.2)
[2024-08-06 22:49] LABS: Hemoglobin A1C 6.5 % (<5.7)
== END 2024-08-06 18:18 | disposition home or self-care (01) ==
LOC: NCHCN 18:17
PROVIDERS: PCP Internal Medicine; Visit Provider Internal Medicine
DX: E11.9 Type 2 diabetes mellitus without complications (principal)
CPT/HCPCS: 80053; 83036; 84443

== ENCOUNTER 2024-12-03 15:25 | Outpatient (REF) | payer MEDICARE, BC, SELFPAY ==
[2024-12-03 17:06] LABS: Hemoglobin A1C 6.8 % (<5.7)
[2024-12-03 17:07] LABS: ALT 25 U/L (14-59); AST 24 U/L (15-37); Alkaline Phosphatase 49 U/L (46-116); Anion Gap 10.2 mmol/L (3-11); BUN 21 mg/dL (7-18); Bilirubin, Total 0.49 mg/dL (0.2-1.0); CO2 28.8 mmol/L (21.0-32.0); Calcium 10.1 mg/dL (8.5-10.1); Calculated LDL 60 mg/dL (<100); Chloride 105 mmol/L (98-107); Cholesterol 154 mg/dL (<200); Estimated GFR 58.39 (mL/min/1.73m2); Glucose 155 mg/dL (74-106); HDL Cholesterol 65 mg/dL (>or=50); Potassium 4.9 mmol/L (3.5-5.1); Sodium 144 mmol/L (136-145); TSH 1.82 uIU/mL (0.36-3.74); Total Protein 7.8 g/dL (6.4-8.2); Triglyceride 147 mg/dL (<150)
== END 2024-12-03 15:26 | disposition home or self-care (01) ==
LOC: NCHCN 15:25
PROVIDERS: PCP Internal Medicine; Visit Provider Internal Medicine
DX: E11.9 Type 2 diabetes mellitus without complications (principal); I10 Essential (primary) hypertension
CPT/HCPCS: 80053; 80061; 83036; 84443